=== PATIENT | male | born 1945 | race Caucasian/White ===

== ENCOUNTER 2016-07-30 13:37 | Inpatient (IN) | payer OTHER, MEDICARE ==
[~2016-07-30 13:37] MED LIST: ACETAMINOPHEN325 MG PO; ALLOPURINOL100 M1 PO; ALLOPURINOL100 MG PO; ALLOPURINOL300 MG; AMOXICILLIN500 MG PO; ASPIR-TRIN325 M2 PO; ASPIRIN EC81 MG PO; ASPIRIN325 MG; ASPIRIN81 M1 PO; ASPIRIN81 MG PO; ATORVASTATIN CA20 M1; ATORVASTATIN CA40 M1 PO; AVELOX400 MG; BAYER ASPIRIN325 M1 PO; CALCIUM 500 +1 EA10 PO; CALCIUM 500 WI1 EAC1 PO; CELEXA40 M2 PO; CELEXA40 MG PO; CHLORHEXIDINE118 ML TP; CLARITIN10 M2 PO; CLARITIN10 M6 PO; COMBIVENT RESPIM4 G1 INH; COUMADIN2.5 M1 PO; COUMADIN5 M2 PO; COUMADIN5 MG PO; CRESTOR20 MG PO; DERMACERIN CRE454 GM TP; FERROUS SULFAT325 MG PO; FLUNISOLIDE25 M3; FLUNISOLIDE25 ML NS; FLUOXETINE HCL10 MG; FOLIC ACID0.4 MG; FOSAMAX70 M1 PO; FOSAMAX70 MG PO; GEMFIBROZIL600 MG PO; GLUCOPHAGE500 M3 PO; GUAIFENESIN400 M1 PO; GUAIFENESIN400 MG PO; GUAIFENESIN600 MG; HYDROCHLOROTHIA25 MG; INDOCIN50 MG; IPRAT-ALBUT 0.5-3 ML INH; IPRATR-ALBUTEROL3 ML IH; LAMISIL250 MG; LASIX80 M1 PO; LIPITOR40 M1 PO; LISINOPRIL40 M1 PO; LISINOPRIL40 MG PO; METOPROLOL SUCC25 M1 PO; METOPROLOL TART25 M1 PO; NAPROSYN375 MG PO; NAPROXEN500 MG PO; NIACIN750 MG; NORCO 5-325 TA1 EACH PO; POTASSIUM CHLO20 ME4 PO; PRINIVIL40 MG; PROBENECID500 MG; PROTONIX40 M2 PO; PROVENTIL17 GM IH; PULMICORT180 PUFF/I INH; TRAZODONE HCL300 MG; TRAZODONE HCL50 M1 PO; TRAZODONE50 MG PO; TYLENOL325 M2 PO; VENTOLIN HFA18 G2 PO; ZANTAC150 MG PO; ZOCOR40 MG; ZYLOPRIM100 M1 PO
[2016-07-30] MEDS ORDERED: COREG25 M1 PO (14:12)
[2016-07-30] MEDS ORDERED: SYMBICORT 160-1 PUFF INH (14:12)
[2016-07-30] MEDS ORDERED: CYCLOBENZAPRINE5 M1 PO (14:13)
[2016-07-30] MEDS ORDERED: DOXYCYCLINE MO100 M1 PO (14:14)
[2016-07-30] MEDS ORDERED: SPIRIVA18 MC1 INH (14:15)
[2016-07-30] MEDS ORDERED: PREDNISONE5 M1 PO (14:17)
[2016-07-30 14:20] LABS: ABG CO2 ARTERIAL 28 mmol/L (21-27); ARTERIAL BLD GAS O2 SATURATION 94 % (95-98); ARTERIAL BLOOD GAS PCO2 38 mmHg (32-45); ARTERIAL PO2 70 mmHg (70-100); BICARBONATE 27 mmol/L (21-28); BLOOD GAS BASE EXCESS 4 mM/L (-/+3); PH 7.46 Units (7.35-7.45)
[2016-07-30 14:29] LABS: BASO % 0.3 % (0-2); EOS % 1.1 % (0-7); EOSINOPHIL ABSOLUTE COUNT 0.1 tho/cmm (0.0-0.7); HCT-HEMATOCRIT 41.2 % (36.0-53.5); HGB-HEMOGLOBIN 12.9 gm/dl (13.5-17.0); IMMATURE GRANULOCYTES ABSOLUTE 0.01 tho/cmm (0-0.03); IMMATURE GRANULOCYTES PERCENT 0.1 % (0-0.3); LYMPH % 13.2 % (20-45); LYMPH ABSOLUTE COUNT 1.5 tho/cmm (0.8-4.5); MCH (MEAN CORPUSCULAR HGB) 27.3 pg (28.0-32.0); MCHC MEAN CORPUSCULAR HGB CONC 31.3 % (32.0-36.0); MCV (MEAN CELL VOLUME) 87.3 fl (82.0-96.0); MEAN PLATELET VOLUME 9.3 cmc (9.4-12.4); MONO % 8.1 % (0-12); MONOCYTE ABSOLUTE COUNT 0.9 tho/cmm (0.0-1.2); NEUTROPHIL ABSOLUTE COUNT 8.8 tho/cmm (1.6-8.0); NEUTROPHIL-AUTOMATED 8.8 tho/cmm (1.6-8.0); NEUTROPHILS % 77.2 % (40-80); PLATELET COUNT 308 tho/cmm (150-450); RED BLOOD COUNT 4.72 mil/cmm (4.40-5.70); RED CELL DISTRIBUTION WIDTH 18.8 % (12.4-16.4); WHITE BLOOD COUNT 11.5 tho/cmm (4.0-10.0)
[2016-07-30 14:47] LABS: ALB/GLOB RATIO 0.8 (0.8-2.0); ALBUMIN 3.1 g/dl (3.5-5.0); ALKALINE PHOSPHATASE 99 U/L (33-138); ALT/SGPT 36 U/L (12-78); ANION GAP 13 mmol/L (0-20); AST/SGOT 34 U/L (10-40); BILIRUBIN,TOTAL 0.6 mg/dl (0.0-1.5); BLOOD UREA NITROGEN 23 mg/dl (6-24); CARBON DIOXIDE-VENOUS 27 mmol/L (22-32); CHLORIDE 101 mmol/l (96-110); CREATININE 1.27 mg/dl (0.60-1.30); GLUCOSE 135 mg/dL (70-110); POTASSIUM 4.1 mmol/L (3.7-5.1); SODIUM 137 mmol/L (135-145); eGFR VALUE FOR BLACK 66 mL/Min
[2016-07-30 15:06] LABS: PROCALCITONIN 0.25 ng/ml (0.05-0.09)
[2016-07-30 15:50] LABS: URINE BILIRUBIN NEGATIVE (NEG); URINE BLOOD NEGATIVE (NEG); URINE GLUCOSE (UA) NEGATIVE (NEG); URINE KETONE NEGATIVE (NEG); URINE LEUKOCYTE ESTERASE NEGATIVE (NEG); URINE NITRITE NEGATIVE (NEG); URINE PROTEIN MODERATE (NEG); URINE SPECIFIC GRAVITY 1.005 (1.003-1.030)
[2016-07-30 15:56] LABS: URINE APPEARANCE CLEAR; URINE COLOR PALE YELLOW
[2016-07-30 16:06] LABS: URINE EPITHELIAL CELLS 0-1 /[HPF] (0-10); URINE RBC 0-1 /[HPF] (0-5)
[2016-07-30 17:27] LABS: MAGNESIUM 1.9 mg/dl (1.3-2.6); TSH-THYROID STIMULATING HORM. 0.82 uIU/ml (0.40-3.80)
[2016-07-30 21:05] LABS: CREATINE PHOSPHOKINASE (CPK) 63 U/L (35-232)
[2016-07-31 05:14] LABS: EOS % 0.2 % (0-7); HCT-HEMATOCRIT 43.2 % (36.0-53.5); HGB-HEMOGLOBIN 13.4 gm/dl (13.5-17.0); IMMATURE GRANULOCYTES ABSOLUTE 0.02 tho/cmm (0-0.03); IMMATURE GRANULOCYTES PERCENT 0.3 % (0-0.3); LYMPH % 14.1 % (20-45); LYMPH ABSOLUTE COUNT 0.8 tho/cmm (0.8-4.5); MCH (MEAN CORPUSCULAR HGB) 27.1 pg (28.0-32.0); MCV (MEAN CELL VOLUME) 87.3 fl (82.0-96.0); MEAN PLATELET VOLUME 9.8 cmc (9.4-12.4); MONO % 2.2 % (0-12); MONOCYTE ABSOLUTE COUNT 0.1 tho/cmm (0.0-1.2); NEUTROPHIL ABSOLUTE COUNT 4.8 tho/cmm (1.6-8.0); NEUTROPHIL-AUTOMATED 4.8 tho/cmm (1.6-8.0); NEUTROPHILS % 83.2 % (40-80); PLATELET COUNT 369 tho/cmm (150-450); RED BLOOD COUNT 4.95 mil/cmm (4.40-5.70); RED CELL DISTRIBUTION WIDTH 18.9 % (12.4-16.4); WHITE BLOOD COUNT 5.8 tho/cmm (4.0-10.0)
[2016-07-31 05:29] LABS: CKMB 4.1 ng/ml (<3.6)
[2016-07-31 05:29] LABS: ALB/GLOB RATIO 0.8 (0.8-2.0); ALBUMIN 3.1 g/dl (3.5-5.0); ALKALINE PHOSPHATASE 109 U/L (33-138); BILIRUBIN,TOTAL 0.8 mg/dl (0.0-1.5); BLOOD UREA NITROGEN 32 mg/dl (6-24); CARBON DIOXIDE-VENOUS 25 mmol/L (22-32); CHLORIDE 101 mmol/l (96-110); GLUCOSE 173 mg/dL (70-110); SODIUM 136 mmol/L (135-145)
[2016-07-31 05:55] LABS: CREATINE PHOSPHOKINASE (CPK) 96 U/L (35-232)
[2016-07-31 05:55] LABS: ALT/SGPT 99 U/L (12-78); ANION GAP 15 mmol/L (0-20); AST/SGOT 96 U/L (10-40); CREATININE 2.07 mg/dl (0.60-1.30); eGFR VALUE FOR BLACK 37 mL/Min
[2016-07-31 09:24] LABS: ABG CO2 ARTERIAL 23 mmol/L (21-27); ARTERIAL BLD GAS O2 SATURATION 93 % (95-98); ARTERIAL BLOOD GAS PCO2 42 mmHg (32-45); ARTERIAL PO2 79 mmHg (70-100); BICARBONATE 22 mmol/L (21-28); BLOOD GAS BASE EXCESS -3 mM/L (-/+3); PH 7.34 Units (7.35-7.45)
[2016-07-31 09:27] LABS: CKMB 4.3 ng/ml (<3.6)
[2016-07-31 09:28] LABS: CREATINE PHOSPHOKINASE (CPK) 111 U/L (35-232)
[2016-07-31 16:25] LABS: BASO % 0.1 % (0-2); HCT-HEMATOCRIT 40.4 % (36.0-53.5); HGB-HEMOGLOBIN 12.7 gm/dl (13.5-17.0); IMMATURE GRANULOCYTES ABSOLUTE 0.02 tho/cmm (0-0.03); IMMATURE GRANULOCYTES PERCENT 0.3 % (0-0.3); LYMPH % 5.6 % (20-45); LYMPH ABSOLUTE COUNT 0.4 tho/cmm (0.8-4.5); MCH (MEAN CORPUSCULAR HGB) 27.4 pg (28.0-32.0); MCHC MEAN CORPUSCULAR HGB CONC 31.4 % (32.0-36.0); MCV (MEAN CELL VOLUME) 87.1 fl (82.0-96.0); MEAN PLATELET VOLUME 9.5 cmc (9.4-12.4); MONO % 9.1 % (0-12); MONOCYTE ABSOLUTE COUNT 0.7 tho/cmm (0.0-1.2); NEUTROPHILS % 84.9 % (40-80); PLATELET COUNT 313 tho/cmm (150-450); RED BLOOD COUNT 4.64 mil/cmm (4.40-5.70); RED CELL DISTRIBUTION WIDTH 18.8 % (12.4-16.4); WHITE BLOOD COUNT 7.1 tho/cmm (4.0-10.0)
[2016-07-31 16:30] LABS: ABG CO2 ARTERIAL 25 mmol/L (21-27); ARTERIAL BLD GAS O2 SATURATION 98 % (95-98); ARTERIAL BLOOD GAS PCO2 47 mmHg (32-45); ARTERIAL PO2 118 mmHg (70-100); BICARBONATE 24 mmol/L (21-28); BLOOD GAS BASE EXCESS -2 mM/L (-/+3); PH 7.33 Units (7.35-7.45)
[2016-07-31 16:39] LABS: ANION GAP 15 mmol/L (0-20); BLOOD UREA NITROGEN 44 mg/dl (6-24); CALCIUM 8.8 mg/dl (8.5-10.5); CARBON DIOXIDE-VENOUS 26 mmol/L (22-32); CHLORIDE 101 mmol/l (96-110); CREATININE 2.05 mg/dl (0.60-1.30); GLUCOSE 152 mg/dL (70-110); SODIUM 137 mmol/L (135-145); eGFR VALUE FOR BLACK 37 mL/Min
[2016-07-31 18:34] LABS: ABG CO2 ARTERIAL 25 mmol/L (21-27); ARTERIAL BLD GAS O2 SATURATION 98 % (95-98); ARTERIAL BLOOD GAS PCO2 44 mmHg (32-45); ARTERIAL PO2 123 mmHg (70-100); BICARBONATE 24 mmol/L (21-28); BLOOD GAS BASE EXCESS -1 mM/L (-/+3); PH 7.36 Units (7.35-7.45)
[2016-08-01 04:08] LABS: ABG CO2 ARTERIAL 24 mmol/L (21-27); ARTERIAL BLD GAS O2 SATURATION 99 % (95-98); ARTERIAL BLOOD GAS PCO2 39 mmHg (32-45); BICARBONATE 23 mmol/L (21-28); BLOOD GAS BASE EXCESS -2 mM/L (-/+3); PH 7.38 Units (7.35-7.45)
[2016-08-01 04:09] LABS: ARTERIAL PO2 240 mmHg (70-100)
[2016-08-01 04:31] LABS: HCT-HEMATOCRIT 39.2 % (36.0-53.5); HGB-HEMOGLOBIN 12.2 gm/dl (13.5-17.0); IMMATURE GRANULOCYTES ABSOLUTE 0.03 tho/cmm (0-0.03); IMMATURE GRANULOCYTES PERCENT 0.5 % (0-0.3); LYMPH % 8.2 % (20-45); LYMPH ABSOLUTE COUNT 0.5 tho/cmm (0.8-4.5); MCH (MEAN CORPUSCULAR HGB) 26.9 pg (28.0-32.0); MCHC MEAN CORPUSCULAR HGB CONC 31.1 % (32.0-36.0); MCV (MEAN CELL VOLUME) 86.3 fl (82.0-96.0); MEAN PLATELET VOLUME 9.9 cmc (9.4-12.4); MONO % 4.8 % (0-12); MONOCYTE ABSOLUTE COUNT 0.3 tho/cmm (0.0-1.2); NEUTROPHIL ABSOLUTE COUNT 5.4 tho/cmm (1.6-8.0); NEUTROPHIL-AUTOMATED 5.4 tho/cmm (1.6-8.0); NEUTROPHILS % 86.5 % (40-80); PLATELET COUNT 247 tho/cmm (150-450); RED BLOOD COUNT 4.54 mil/cmm (4.40-5.70); RED CELL DISTRIBUTION WIDTH 18.7 % (12.4-16.4); WHITE BLOOD COUNT 6.3 tho/cmm (4.0-10.0)
[2016-08-01 04:52] LABS: ALB/GLOB RATIO 0.9 (0.8-2.0); ALBUMIN 2.9 g/dl (3.5-5.0); ALKALINE PHOSPHATASE 92 U/L (33-138); ANION GAP 14 mmol/L (0-20); BILIRUBIN,DIRECT 0.3 mg/dl (0.0-0.3); BILIRUBIN,INDIRECT 0.5 mg/dL (0.0-1.0); BILIRUBIN,TOTAL 0.8 mg/dl (0.0-1.5); BLOOD UREA NITROGEN 48 mg/dl (6-24); CALCIUM 8.1 mg/dl (8.5-10.5); CARBON DIOXIDE-VENOUS 25 mmol/L (22-32); CHLORIDE 102 mmol/l (96-110); CREATININE 1.97 mg/dl (0.60-1.30); GLUCOSE 136 mg/dL (70-110); MAGNESIUM 2.1 mg/dl (1.3-2.6); POTASSIUM 4.4 mmol/L (3.7-5.1); SODIUM 137 mmol/L (135-145); eGFR VALUE FOR BLACK 39 mL/Min
[2016-08-01 05:07] LABS: ALT/SGPT 1367 U/L (12-78); AST/SGOT 1341 U/L (10-40)
[2016-08-01 15:15] LABS: INR 1.8 INR (0.9-1.1); PROTHROMBIN TIME 20.7 SECONDS (9.0-13.6)
[2016-08-01 15:27] LABS: IRON 15 ug/dl (49-181); IRON BINDING CAPACITY 313 ug/dl (250-450)
[2016-08-01 15:29] LABS: FERRITIN 73 ng/ml (22-388)
[2016-08-02 05:24] LABS: HCT-HEMATOCRIT 38.1 % (36.0-53.5); HGB-HEMOGLOBIN 11.9 gm/dl (13.5-17.0); IMMATURE GRANULOCYTES ABSOLUTE 0.03 tho/cmm (0-0.03); IMMATURE GRANULOCYTES PERCENT 0.3 % (0-0.3); LYMPH % 1.5 % (20-45); LYMPH ABSOLUTE COUNT 0.2 tho/cmm (0.8-4.5); MCH (MEAN CORPUSCULAR HGB) 26.8 pg (28.0-32.0); MCHC MEAN CORPUSCULAR HGB CONC 31.2 % (32.0-36.0); MCV (MEAN CELL VOLUME) 85.8 fl (82.0-96.0); MEAN PLATELET VOLUME 10.3 cmc (9.4-12.4); MONO % 10.9 % (0-12); MONOCYTE ABSOLUTE COUNT 1.2 tho/cmm (0.0-1.2); NEUTROPHIL ABSOLUTE COUNT 9.2 tho/cmm (1.6-8.0); NEUTROPHIL-AUTOMATED 9.2 tho/cmm (1.6-8.0); NEUTROPHILS % 87.3 % (40-80); PLATELET COUNT 258 tho/cmm (150-450); RED BLOOD COUNT 4.44 mil/cmm (4.40-5.70); RED CELL DISTRIBUTION WIDTH 18.8 % (12.4-16.4)
[2016-08-02 05:34] LABS: WHITE BLOOD COUNT 10.5 tho/cmm (4.0-10.0)
[2016-08-02 05:39] LABS: ALBUMIN 2.9 g/dl (3.5-5.0); ANION GAP 20 mmol/L (0-20); BLOOD UREA NITROGEN 66 mg/dl (6-24); CALCIUM 7.9 mg/dl (8.5-10.5); CARBON DIOXIDE-VENOUS 22 mmol/L (22-32); CHLORIDE 99 mmol/l (96-110); GLUCOSE 133 mg/dL (70-110); POTASSIUM 3.9 mmol/L (3.7-5.1); SODIUM 137 mmol/L (135-145)
[2016-08-02 05:46] LABS: ALKALINE PHOSPHATASE 95 U/L (33-138); CREATININE 2.37 mg/dl (0.60-1.30); eGFR VALUE FOR BLACK 31 mL/Min
[2016-08-02 05:47] LABS: ALT/SGPT 2490 U/L (12-78); AST/SGOT 1988 U/L (10-40); BILIRUBIN,DIRECT 0.7 mg/dl (0.0-0.3); BILIRUBIN,INDIRECT 0.7 mg/dL (0.0-1.0); BILIRUBIN,TOTAL 1.4 mg/dl (0.0-1.5)
[2016-08-02 05:59] LABS: ALB/GLOB RATIO 0.9 (0.8-2.0); BUN/CREATININE RATIO 27.8 RATIO (6-25)
[2016-08-02 08:54] LABS: ABG CO2 ARTERIAL 20 mmol/L (21-27); ARTERIAL BLD GAS O2 SATURATION 97 % (95-98); ARTERIAL BLOOD GAS PCO2 28 mmHg (32-45); ARTERIAL PO2 97 mmHg (70-100); BICARBONATE 20 mmol/L (21-28); BLOOD GAS BASE EXCESS -3 mM/L (-/+3); PH 7.46 Units (7.35-7.45)
[2016-08-02 09:44] LABS: URINE CREATININE-RANDOM 85 mg/dl (30-125); URINE SODIUM-RANDOM 6 mmol/L (20-110)
[2016-08-02 12:03] LABS: URINE TOTAL PROTEIN-RANDOM 71.5 mg/dl (<11.8)
--- NOTE | 2016-08-02 19:09 | NUR ---
08/02/16 @ 1909: REVIEWED AND AGREED WITH MARITO HORN RN CHARTING FOR THIS PATIENT. ANNE MANNING RN
[2016-08-03 04:23] LABS: HCT-HEMATOCRIT 34.9 % (36.0-53.5); HGB-HEMOGLOBIN 11.1 gm/dl (13.5-17.0); IMMATURE GRANULOCYTES ABSOLUTE 0.02 tho/cmm (0-0.03); IMMATURE GRANULOCYTES PERCENT 0.3 % (0-0.3); LYMPH % 3.9 % (20-45); LYMPH ABSOLUTE COUNT 0.3 tho/cmm (0.8-4.5); MCH (MEAN CORPUSCULAR HGB) 26.5 pg (28.0-32.0); MCHC MEAN CORPUSCULAR HGB CONC 31.8 % (32.0-36.0); MCV (MEAN CELL VOLUME) 83.3 fl (82.0-96.0); MEAN PLATELET VOLUME 10.1 cmc (9.4-12.4); MONO % 10.7 % (0-12); MONOCYTE ABSOLUTE COUNT 0.8 tho/cmm (0.0-1.2); NEUTROPHIL ABSOLUTE COUNT 6.1 tho/cmm (1.6-8.0); NEUTROPHIL-AUTOMATED 6.1 tho/cmm (1.6-8.0); NEUTROPHILS % 85.1 % (40-80); PLATELET COUNT 175 tho/cmm (150-450); RED BLOOD COUNT 4.19 mil/cmm (4.40-5.70); RED CELL DISTRIBUTION WIDTH 18.5 % (12.4-16.4); WHITE BLOOD COUNT 7.2 tho/cmm (4.0-10.0)
[2016-08-03 04:39] LABS: ALB/GLOB RATIO 1.1 (0.8-2.0); ALBUMIN 2.9 g/dl (3.5-5.0); ALKALINE PHOSPHATASE 101 U/L (33-138); ANION GAP 18 mmol/L (0-20); BILIRUBIN,TOTAL 1.7 mg/dl (0.0-1.5); BLOOD UREA NITROGEN 81 mg/dl (6-24); CARBON DIOXIDE-VENOUS 22 mmol/L (22-32); CHLORIDE 97 mmol/l (96-110); CREATININE 2.65 mg/dl (0.60-1.30); GLUCOSE 140 mg/dL (70-110); MAGNESIUM 2.3 mg/dl (1.3-2.6); PHOSPHOROUS 5.5 mg/dl (2.5-4.9); POTASSIUM 3.5 mmol/L (3.7-5.1); SODIUM 133 mmol/L (135-145); eGFR VALUE FOR BLACK 27 mL/Min
[2016-08-03 05:39] LABS: ALT/SGPT 3454 U/L (12-78); AST/SGOT 3055 U/L (10-40)
[2016-08-03 10:28] LABS: INR 2.7 INR (0.9-1.1); PROTHROMBIN TIME 32.9 SECONDS (9.0-13.6)
[2016-08-04 04:31] LABS: HCT-HEMATOCRIT 34.3 % (36.0-53.5); HGB-HEMOGLOBIN 11.2 gm/dl (13.5-17.0); IMMATURE GRANULOCYTES ABSOLUTE 0.02 tho/cmm (0-0.03); IMMATURE GRANULOCYTES PERCENT 0.3 % (0-0.3); LYMPH % 5.7 % (20-45); LYMPH ABSOLUTE COUNT 0.4 tho/cmm (0.8-4.5); MCH (MEAN CORPUSCULAR HGB) 26.9 pg (28.0-32.0); MCHC MEAN CORPUSCULAR HGB CONC 32.7 % (32.0-36.0); MCV (MEAN CELL VOLUME) 82.5 fl (82.0-96.0); MEAN PLATELET VOLUME 10.9 cmc (9.4-12.4); MONO % 7.4 % (0-12); MONOCYTE ABSOLUTE COUNT 0.5 tho/cmm (0.0-1.2); NEUTROPHIL ABSOLUTE COUNT 6.1 tho/cmm (1.6-8.0); NEUTROPHIL-AUTOMATED 6.1 tho/cmm (1.6-8.0); NEUTROPHILS % 86.6 % (40-80); PLATELET COUNT 130 tho/cmm (150-450); RED BLOOD COUNT 4.16 mil/cmm (4.40-5.70); RED CELL DISTRIBUTION WIDTH 18.2 % (12.4-16.4); WHITE BLOOD COUNT 7.1 tho/cmm (4.0-10.0)
[2016-08-04 04:36] LABS: INR 2.5 INR (0.9-1.1)
[2016-08-04 04:51] LABS: ALB/GLOB RATIO 1.1 (0.8-2.0); ALBUMIN 2.8 g/dl (3.5-5.0); ALKALINE PHOSPHATASE 111 U/L (33-138); ANION GAP 18 mmol/L (0-20); BILIRUBIN,DIRECT 0.8 mg/dl (0.0-0.3); BILIRUBIN,INDIRECT 0.7 mg/dL (0.0-1.0); BILIRUBIN,TOTAL 1.5 mg/dl (0.0-1.5); BLOOD UREA NITROGEN 87 mg/dl (6-24); CALCIUM 6.6 mg/dl (8.5-10.5); CARBON DIOXIDE-VENOUS 25 mmol/L (22-32); CHLORIDE 94 mmol/l (96-110); CREATININE 2.62 mg/dl (0.60-1.30); GLUCOSE 140 mg/dL (70-110); PHOSPHOROUS 4.9 mg/dl (2.5-4.9); POTASSIUM 3.6 mmol/L (3.7-5.1); SODIUM 133 mmol/L (135-145); eGFR VALUE FOR BLACK 27 mL/Min
[2016-08-04 05:07] LABS: ALT/SGPT 3179 U/L (12-78); AST/SGOT 1817 U/L (10-40)
[2016-08-04 06:26] LABS: URINE PRT/CR RATIO 0.96 Ratio (0.0-0.20); URINE TOTAL PROTEIN-RANDOM 19.3 mg/dl (<11.8)
[2016-08-05 05:25] LABS: HCT-HEMATOCRIT 35.3 % (36.0-53.5); HGB-HEMOGLOBIN 11.8 gm/dl (13.5-17.0); MCH (MEAN CORPUSCULAR HGB) 27.2 pg (28.0-32.0); MCHC MEAN CORPUSCULAR HGB CONC 33.4 % (32.0-36.0); MCV (MEAN CELL VOLUME) 81.3 fl (82.0-96.0); MEAN PLATELET VOLUME 10.1 cmc (9.4-12.4); NEUTROPHIL-AUTOMATED 6.8 tho/cmm (1.6-8.0); PLATELET COUNT 101 tho/cmm (150-450); RED BLOOD COUNT 4.34 mil/cmm (4.40-5.70); RED CELL DISTRIBUTION WIDTH 18.2 % (12.4-16.4); WHITE BLOOD COUNT 7.7 tho/cmm (4.0-10.0)
[2016-08-05 05:28] LABS: IMMATURE GRANULOCYTES ABSOLUTE 0.04 tho/cmm (0-0.03); IMMATURE GRANULOCYTES PERCENT 0.5 % (0-0.3); LYMPH % 4.4 % (20-45); LYMPH ABSOLUTE COUNT 0.3 tho/cmm (0.8-4.5); MONO % 7.1 % (0-12); MONOCYTE ABSOLUTE COUNT 0.6 tho/cmm (0.0-1.2); NEUTROPHIL ABSOLUTE COUNT 6.8 tho/cmm (1.6-8.0)
[2016-08-05 05:53] LABS: ANION GAP 17 mmol/L (0-20); BLOOD UREA NITROGEN 83 mg/dl (6-24); CALCIUM 7.1 mg/dl (8.5-10.5); CARBON DIOXIDE-VENOUS 24 mmol/L (22-32); CHLORIDE 92 mmol/l (96-110); CREATININE 2.31 mg/dl (0.60-1.30); GLUCOSE 155 mg/dL (70-110); MAGNESIUM 2.5 mg/dl (1.3-2.6); PHOSPHOROUS 4.5 mg/dl (2.5-4.9); POTASSIUM 3.8 mmol/L (3.7-5.1); SODIUM 129 mmol/L (135-145); eGFR VALUE FOR BLACK 32 mL/Min
[2016-08-05 15:04] LABS: PF4 (HIT) ANTIBODY POSITIVE (NEGATIVE)
[2016-08-05 15:50] LABS: ALBUMIN 2.9 g/dl (3.5-5.0); BILIRUBIN,DIRECT 0.9 mg/dl (0.0-0.3); BILIRUBIN,INDIRECT 0.7 mg/dL (0.0-1.0); BILIRUBIN,TOTAL 1.6 mg/dl (0.0-1.5)
[2016-08-05 16:05] LABS: INR 1.8 INR (0.9-1.1); PROTHROMBIN TIME 21.3 SECONDS (9.0-13.6)
[2016-08-05 17:40] LABS: FIBRINOGEN 176 mg/dl (200-400)
[2016-08-05 17:42] LABS: ANTI THROMBIN III 52 % (80-120)
[2016-08-05 17:43] LABS: PARTIAL THROMBOPLASTIN TIME 39 SECONDS (22-38)
[2016-08-06 04:02] LABS: HCT-HEMATOCRIT 36.1 % (36.0-53.5); HGB-HEMOGLOBIN 11.7 gm/dl (13.5-17.0); MCH (MEAN CORPUSCULAR HGB) 26.3 pg (28.0-32.0); MCHC MEAN CORPUSCULAR HGB CONC 32.4 % (32.0-36.0); MCV (MEAN CELL VOLUME) 81.1 fl (82.0-96.0); MEAN PLATELET VOLUME 10.6 cmc (9.4-12.4); NEUTROPHIL-AUTOMATED 6.5 tho/cmm (1.6-8.0); PLATELET COUNT 101 tho/cmm (150-450); RED BLOOD COUNT 4.45 mil/cmm (4.40-5.70); WHITE BLOOD COUNT 7.3 tho/cmm (4.0-10.0)
[2016-08-06 04:10] LABS: INR 1.6 INR (0.9-1.1); PROTHROMBIN TIME 19.1 SECONDS (9.0-13.6)
[2016-08-06 04:22] LABS: ALBUMIN 2.9 g/dl (3.5-5.0); ALKALINE PHOSPHATASE 204 U/L (33-138); ANION GAP 15 mmol/L (0-20); AST/SGOT 424 U/L (10-40); BILIRUBIN,TOTAL 1.5 mg/dl (0.0-1.5); BLOOD UREA NITROGEN 78 mg/dl (6-24); CALCIUM 7.7 mg/dl (8.5-10.5); CARBON DIOXIDE-VENOUS 28 mmol/L (22-32); CHLORIDE 91 mmol/l (96-110); CREATININE 1.95 mg/dl (0.60-1.30); GLUCOSE 178 mg/dL (70-110); MAGNESIUM 2.5 mg/dl (1.3-2.6); PHOSPHOROUS 3.8 mg/dl (2.5-4.9); POTASSIUM 3.8 mmol/L (3.7-5.1); SODIUM 130 mmol/L (135-145); eGFR VALUE FOR BLACK 39 mL/Min
[2016-08-06 04:39] LABS: ALT/SGPT 2015 U/L (12-78)
[2016-08-06 04:45] LABS: BASO % 0.1 % (0-2); IMMATURE GRANULOCYTES ABSOLUTE 0.02 tho/cmm (0-0.03); IMMATURE GRANULOCYTES PERCENT 0.3 % (0-0.3); LYMPH % 3.7 % (20-45); LYMPH ABSOLUTE COUNT 0.3 tho/cmm (0.8-4.5); MONO % 6.2 % (0-12); MONOCYTE ABSOLUTE COUNT 0.5 tho/cmm (0.0-1.2); NEUTROPHIL ABSOLUTE COUNT 6.5 tho/cmm (1.6-8.0); NEUTROPHILS % 89.7 % (40-80)
[2016-08-07 04:33] LABS: HCT-HEMATOCRIT 36.8 % (36.0-53.5); HGB-HEMOGLOBIN 11.9 gm/dl (13.5-17.0); IMMATURE GRANULOCYTES ABSOLUTE 0.02 tho/cmm (0-0.03); IMMATURE GRANULOCYTES PERCENT 0.2 % (0-0.3); LYMPH % 3.3 % (20-45); LYMPH ABSOLUTE COUNT 0.3 tho/cmm (0.8-4.5); MCH (MEAN CORPUSCULAR HGB) 26.3 pg (28.0-32.0); MCHC MEAN CORPUSCULAR HGB CONC 32.3 % (32.0-36.0); MCV (MEAN CELL VOLUME) 81.4 fl (82.0-96.0); MEAN PLATELET VOLUME 9.9 cmc (9.4-12.4); MONO % 5.7 % (0-12); MONOCYTE ABSOLUTE COUNT 0.5 tho/cmm (0.0-1.2); NEUTROPHIL ABSOLUTE COUNT 7.3 tho/cmm (1.6-8.0); NEUTROPHIL-AUTOMATED 7.3 tho/cmm (1.6-8.0); NEUTROPHILS % 90.8 % (40-80); PLATELET COUNT 83 tho/cmm (150-450); RED BLOOD COUNT 4.52 mil/cmm (4.40-5.70); RED CELL DISTRIBUTION WIDTH 18.3 % (12.4-16.4); WHITE BLOOD COUNT 8.1 tho/cmm (4.0-10.0)
[2016-08-07 04:46] LABS: INR 1.4 INR (0.9-1.1); PROTHROMBIN TIME 16.7 SECONDS (9.0-13.6)
[2016-08-07 04:56] LABS: ALBUMIN 2.9 g/dl (3.5-5.0); ALKALINE PHOSPHATASE 189 U/L (33-138); BILIRUBIN,TOTAL 1.5 mg/dl (0.0-1.5); BLOOD UREA NITROGEN 67 mg/dl (6-24); CALCIUM 8.5 mg/dl (8.5-10.5); CARBON DIOXIDE-VENOUS 31 mmol/L (22-32); CHLORIDE 91 mmol/l (96-110); CREATININE 1.64 mg/dl (0.60-1.30); GLUCOSE 231 mg/dL (70-110); SODIUM 131 mmol/L (135-145); eGFR VALUE FOR BLACK 48 mL/Min
[2016-08-07 05:14] LABS: ALT/SGPT 1453 U/L (12-78); ANION GAP 13 mmol/L (0-20); AST/SGOT 212 U/L (10-40); POTASSIUM 3.8 mmol/L (3.7-5.1)
[2016-08-08 04:21] LABS: HCT-HEMATOCRIT 37.6 % (36.0-53.5); HGB-HEMOGLOBIN 11.9 gm/dl (13.5-17.0); MCH (MEAN CORPUSCULAR HGB) 26.2 pg (28.0-32.0); MCHC MEAN CORPUSCULAR HGB CONC 31.6 % (32.0-36.0); MCV (MEAN CELL VOLUME) 82.8 fl (82.0-96.0); MEAN PLATELET VOLUME 10.1 cmc (9.4-12.4); NEUTROPHIL-AUTOMATED (STOP CHECK) tho/cmm (1.6-8.0); PLATELET COUNT 86 tho/cmm (150-450); RED BLOOD COUNT 4.54 mil/cmm (4.40-5.70); RED CELL DISTRIBUTION WIDTH 18.8 % (12.4-16.4)
[2016-08-08 04:37] LABS: ALKALINE PHOSPHATASE 185 U/L (33-138); ANION GAP 13 mmol/L (0-20); AST/SGOT 123 U/L (10-40); BILIRUBIN,TOTAL 1.4 mg/dl (0.0-1.5); BLOOD UREA NITROGEN 64 mg/dl (6-24); CALCIUM 8.5 mg/dl (8.5-10.5); CARBON DIOXIDE-VENOUS 32 mmol/L (22-32); CHLORIDE 93 mmol/l (96-110); GLUCOSE 250 mg/dL (70-110); PHOSPHOROUS 2.9 mg/dl (2.5-4.9); POTASSIUM 4.3 mmol/L (3.7-5.1); SODIUM 134 mmol/L (135-145); eGFR VALUE FOR BLACK 54 mL/Min
[2016-08-08 04:53] LABS: ALT/SGPT 1086 U/L (12-78)
[2016-08-08 05:14] LABS: INR 1.2 INR (0.9-1.1); PROTHROMBIN TIME 14.4 SECONDS (9.0-13.6)
[2016-08-08 10:25] LABS: BAND % 1 % (0-20); BAND ABSOLUTE COUNT 0.1 tho/cmm (0-2.0)
[2016-08-09 05:26] LABS: ANION GAP 11 mmol/L (0-20); BLOOD UREA NITROGEN 54 mg/dl (6-24); CALCIUM 8.5 mg/dl (8.5-10.5); CARBON DIOXIDE-VENOUS 34 mmol/L (22-32); CHLORIDE 95 mmol/l (96-110); CREATININE 1.34 mg/dl (0.60-1.30); GLUCOSE 187 mg/dL (70-110); SODIUM 136 mmol/L (135-145); eGFR VALUE FOR BLACK 62 mL/Min
[2016-08-09 05:43] LABS: HCT-HEMATOCRIT 34.5 % (36.0-53.5); MCH (MEAN CORPUSCULAR HGB) 26.6 pg (28.0-32.0); MCHC MEAN CORPUSCULAR HGB CONC 31.9 % (32.0-36.0); MCV (MEAN CELL VOLUME) 83.3 fl (82.0-96.0); MEAN PLATELET VOLUME 10.9 cmc (9.4-12.4); PLATELET COUNT 70 tho/cmm (150-450); RED BLOOD COUNT 4.14 mil/cmm (4.40-5.70); WHITE BLOOD COUNT 11.8 tho/cmm (4.0-10.0)
[2016-08-09 05:49] LABS: INR 1.3 INR (0.9-1.1); PROTHROMBIN TIME 14.9 SECONDS (9.0-13.6)
[2016-08-09 07:31] LABS: BAND % 2 % (0-20); BAND ABSOLUTE COUNT 0.2 tho/cmm (0-2.0)
[2016-08-09 11:09] LABS: ABG CO2 ARTERIAL 34 mmol/L (21-27); ARTERIAL BLD GAS O2 SATURATION 93 % (95-98); ARTERIAL BLOOD GAS PCO2 45 mmHg (32-45); ARTERIAL PO2 64 mmHg (70-100); BICARBONATE 33 mmol/L (21-28); BLOOD GAS BASE EXCESS 9 mM/L (-/+3); PH 7.48 Units (7.35-7.45)
[2016-08-10 02:52] LABS: MAGNESIUM 2.6 mg/dl (1.8-2.6)
[2016-08-10 03:28] LABS: HCT-HEMATOCRIT 34.4 % (36.0-53.5); HGB-HEMOGLOBIN 10.8 gm/dl (13.5-17.0); IMMATURE GRANULOCYTES ABSOLUTE 0.04 tho/cmm (0-0.03); IMMATURE GRANULOCYTES PERCENT 0.4 % (0-0.3); LYMPH % 3.3 % (20-45); LYMPH ABSOLUTE COUNT 0.4 tho/cmm (0.8-4.5); MCH (MEAN CORPUSCULAR HGB) 26.5 pg (28.0-32.0); MCHC MEAN CORPUSCULAR HGB CONC 31.4 % (32.0-36.0); MCV (MEAN CELL VOLUME) 84.3 fl (82.0-96.0); MEAN PLATELET VOLUME 10.5 cmc (9.4-12.4); MONO % 0.7 % (0-12); MONOCYTE ABSOLUTE COUNT 0.1 tho/cmm (0.0-1.2); NEUTROPHIL ABSOLUTE COUNT 10.2 tho/cmm (1.6-8.0); NEUTROPHIL-AUTOMATED 10.2 tho/cmm (1.6-8.0); NEUTROPHILS % 95.6 % (40-80); PLATELET COUNT 71 tho/cmm (150-450); RED BLOOD COUNT 4.08 mil/cmm (4.40-5.70); WHITE BLOOD COUNT 10.7 tho/cmm (4.0-10.0)
[2016-08-10 03:41] LABS: ALB/GLOB RATIO 1.1 (0.8-2.0); ALBUMIN 2.8 g/dl (3.5-5.0); ALKALINE PHOSPHATASE 125 U/L (33-138); ANION GAP 9 mmol/L (0-20); BILIRUBIN,TOTAL 1.7 mg/dl (0.0-1.5); BLOOD UREA NITROGEN 53 mg/dl (6-24); CALCIUM 8.4 mg/dl (8.5-10.5); CARBON DIOXIDE-VENOUS 35 mmol/L (22-32); CHLORIDE 96 mmol/l (96-110); CREATININE 1.21 mg/dl (0.60-1.30); GLUCOSE 234 mg/dL (70-110); INR 1.3 INR (0.9-1.1); PROTHROMBIN TIME 15.3 SECONDS (9.0-13.6); SODIUM 136 mmol/L (135-145); eGFR VALUE FOR BLACK 70 mL/Min
[2016-08-10 04:16] LABS: ALT/SGPT 526 U/L (12-78); AST/SGOT 57 U/L (10-40)
[2016-08-10 04:34] LABS: ABG CO2 ARTERIAL 36 mmol/L (21-27); ARTERIAL BLD GAS O2 SATURATION 95 % (95-98); ARTERIAL BLOOD GAS PCO2 44 mmHg (32-45); ARTERIAL PO2 70 mmHg (70-100); BICARBONATE 35 mmol/L (21-28); BLOOD GAS BASE EXCESS 10 mM/L (-/+3); PH 7.51 Units (7.35-7.45)
[2016-08-11 04:15] LABS: HCT-HEMATOCRIT 32.1 % (36.0-53.5); HGB-HEMOGLOBIN 9.9 gm/dl (13.5-17.0); IMMATURE GRANULOCYTES ABSOLUTE 0.07 tho/cmm (0-0.03); IMMATURE GRANULOCYTES PERCENT 0.6 % (0-0.3); LYMPH % 3.2 % (20-45); LYMPH ABSOLUTE COUNT 0.4 tho/cmm (0.8-4.5); MCH (MEAN CORPUSCULAR HGB) 26.3 pg (28.0-32.0); MCHC MEAN CORPUSCULAR HGB CONC 30.8 % (32.0-36.0); MCV (MEAN CELL VOLUME) 85.1 fl (82.0-96.0); MONO % 1.2 % (0-12); MONOCYTE ABSOLUTE COUNT 0.1 tho/cmm (0.0-1.2); NEUTROPHIL ABSOLUTE COUNT 11.1 tho/cmm (1.6-8.0); NEUTROPHIL-AUTOMATED 11.1 tho/cmm (1.6-8.0); PLATELET COUNT 68 tho/cmm (150-450); RED BLOOD COUNT 3.77 mil/cmm (4.40-5.70); RED CELL DISTRIBUTION WIDTH 19.3 % (12.4-16.4); WHITE BLOOD COUNT 11.6 tho/cmm (4.0-10.0)
[2016-08-11 04:20] LABS: ANION GAP 10 mmol/L (0-20); BLOOD UREA NITROGEN 47 mg/dl (6-24); CALCIUM 8.2 mg/dl (8.5-10.5); CARBON DIOXIDE-VENOUS 35 mmol/L (22-32); CHLORIDE 94 mmol/l (96-110); GLUCOSE 183 mg/dL (70-110); MAGNESIUM 2.6 mg/dl (1.8-2.6); POTASSIUM 3.8 mmol/L (3.7-5.1); SODIUM 135 mmol/L (135-145); eGFR VALUE FOR BLACK 71 mL/Min
[2016-08-11 16:03] LABS: URINE LEUKOCYTE ESTERASE NEGATIVE (NEG); URINE PROTEIN MODERATE (NEG)
[2016-08-11 16:04] LABS: URINE APPEARANCE CLEAR; URINE BILIRUBIN NEGATIVE (NEG); URINE BLOOD MODERATE (NEG); URINE COLOR YELLOW; URINE GLUCOSE (UA) SMALL (NEG); URINE KETONE NEGATIVE (NEG); URINE NITRITE NEGATIVE (NEG)
[2016-08-11 16:19] LABS: URINE EPITHELIAL CELLS 0-2 /[HPF] (0-10); URINE RBC 0-2 /[HPF] (0-5); URINE WBC 0-1 /[HPF] (0-5)
[2016-08-12 03:43] LABS: BASO % 0.1 % (0-2); HCT-HEMATOCRIT 30.6 % (36.0-53.5); HGB-HEMOGLOBIN 9.4 gm/dl (13.5-17.0); IMMATURE GRANULOCYTES ABSOLUTE 0.04 tho/cmm (0-0.03); IMMATURE GRANULOCYTES PERCENT 0.3 % (0-0.3); LYMPH % 5.6 % (20-45); LYMPH ABSOLUTE COUNT 0.8 tho/cmm (0.8-4.5); MCH (MEAN CORPUSCULAR HGB) 26.2 pg (28.0-32.0); MCHC MEAN CORPUSCULAR HGB CONC 30.7 % (32.0-36.0); MCV (MEAN CELL VOLUME) 85.2 fl (82.0-96.0); MONO % 1.7 % (0-12); MONOCYTE ABSOLUTE COUNT 0.3 tho/cmm (0.0-1.2); NEUTROPHIL ABSOLUTE COUNT 13.8 tho/cmm (1.6-8.0); NEUTROPHIL-AUTOMATED 13.8 tho/cmm (1.6-8.0); NEUTROPHILS % 92.3 % (40-80); PLATELET COUNT 73 tho/cmm (150-450); RED BLOOD COUNT 3.59 mil/cmm (4.40-5.70); RED CELL DISTRIBUTION WIDTH 19.6 % (12.4-16.4)
[2016-08-12 04:09] LABS: ALB/GLOB RATIO 1.1 (0.8-2.0); ALBUMIN 2.6 g/dl (3.5-5.0); ALKALINE PHOSPHATASE 95 U/L (33-138); ALT/SGPT 273 U/L (12-78); ANION GAP 10 mmol/L (0-20); AST/SGOT 60 U/L (10-40); BILIRUBIN,TOTAL 1.5 mg/dl (0.0-1.5); BLOOD UREA NITROGEN 46 mg/dl (6-24); CALCIUM 8.1 mg/dl (8.5-10.5); CARBON DIOXIDE-VENOUS 37 mmol/L (22-32); CHLORIDE 93 mmol/l (96-110); CHOLESTEROL 139 mg/dl (120-200); CREATININE 1.24 mg/dl (0.60-1.30); GLUCOSE 122 mg/dL (70-110); HDL CHOLESTEROL 60 mg/dl (40-60); LDL CHOLESTEROL 61 mg/dl (0-99); MAGNESIUM 2.6 mg/dl (1.8-2.6); POTASSIUM 3.9 mmol/L (3.7-5.1); SODIUM 136 mmol/L (135-145); TRIGLYCERIDES 91 mg/dl (<149); VLDL 18 mg/dl (0-30); eGFR VALUE FOR BLACK 68 mL/Min
[2016-08-13 04:38] LABS: BASO % 0.1 % (0-2); HCT-HEMATOCRIT 27.5 % (36.0-53.5); HGB-HEMOGLOBIN 8.6 gm/dl (13.5-17.0); IMMATURE GRANULOCYTES ABSOLUTE 0.05 tho/cmm (0-0.03); IMMATURE GRANULOCYTES PERCENT 0.3 % (0-0.3); LYMPH % 2.5 % (20-45); LYMPH ABSOLUTE COUNT 0.4 tho/cmm (0.8-4.5); MCH (MEAN CORPUSCULAR HGB) 26.9 pg (28.0-32.0); MCHC MEAN CORPUSCULAR HGB CONC 31.3 % (32.0-36.0); MCV (MEAN CELL VOLUME) 85.9 fl (82.0-96.0); MEAN PLATELET VOLUME 10.5 cmc (9.4-12.4); MONO % 0.8 % (0-12); MONOCYTE ABSOLUTE COUNT 0.1 tho/cmm (0.0-1.2); NEUTROPHIL ABSOLUTE COUNT 13.9 tho/cmm (1.6-8.0); NEUTROPHIL-AUTOMATED 13.9 tho/cmm (1.6-8.0); NEUTROPHILS % 96.3 % (40-80); PLATELET COUNT 56 tho/cmm (150-450); RED CELL DISTRIBUTION WIDTH 19.9 % (12.4-16.4); WHITE BLOOD COUNT 14.4 tho/cmm (4.0-10.0)
[2016-08-13 04:50] LABS: ALBUMIN 2.3 g/dl (3.5-5.0); ALKALINE PHOSPHATASE 82 U/L (33-138); ALT/SGPT 186 U/L (12-78); ANION GAP 9 mmol/L (0-20); AST/SGOT 36 U/L (10-40); BILIRUBIN,TOTAL 1.7 mg/dl (0.0-1.5); BLOOD UREA NITROGEN 48 mg/dl (6-24); CALCIUM 7.6 mg/dl (8.5-10.5); CARBON DIOXIDE-VENOUS 37 mmol/L (22-32); CHLORIDE 94 mmol/l (96-110); GLUCOSE 150 mg/dL (70-110); MAGNESIUM 2.6 mg/dl (1.8-2.6); POTASSIUM 3.7 mmol/L (3.7-5.1); SODIUM 136 mmol/L (135-145); eGFR VALUE FOR BLACK 64 mL/Min
[2016-08-14 04:14] LABS: HCT-HEMATOCRIT 25.7 % (36.0-53.5); HGB-HEMOGLOBIN 7.8 gm/dl (13.5-17.0); IMMATURE GRANULOCYTES ABSOLUTE 0.03 tho/cmm (0-0.03); IMMATURE GRANULOCYTES PERCENT 0.3 % (0-0.3); LYMPH % 1.9 % (20-45); LYMPH ABSOLUTE COUNT 0.2 tho/cmm (0.8-4.5); MCH (MEAN CORPUSCULAR HGB) 26.4 pg (28.0-32.0); MCHC MEAN CORPUSCULAR HGB CONC 30.4 % (32.0-36.0); MCV (MEAN CELL VOLUME) 86.8 fl (82.0-96.0); MEAN PLATELET VOLUME 10.2 cmc (9.4-12.4); MONO % 1.6 % (0-12); MONOCYTE ABSOLUTE COUNT 0.2 tho/cmm (0.0-1.2); NEUTROPHIL ABSOLUTE COUNT 11.2 tho/cmm (1.6-8.0); NEUTROPHIL-AUTOMATED 11.2 tho/cmm (1.6-8.0); NEUTROPHILS % 96.2 % (40-80); RED BLOOD COUNT 2.96 mil/cmm (4.40-5.70); RED CELL DISTRIBUTION WIDTH 20.1 % (12.4-16.4); WHITE BLOOD COUNT 11.7 tho/cmm (4.0-10.0)
[2016-08-14 04:18] LABS: PLATELET COUNT 42 tho/cmm (150-450)
[2016-08-14 04:19] LABS: ALB/GLOB RATIO 0.9 (0.8-2.0); ALBUMIN 2.2 g/dl (3.5-5.0); ALKALINE PHOSPHATASE 69 U/L (33-138); ALT/SGPT 141 U/L (12-78); ANION GAP 9 mmol/L (0-20); AST/SGOT 29 U/L (10-40); BILIRUBIN,DIRECT 0.7 mg/dl (0.0-0.3); BILIRUBIN,INDIRECT 0.9 mg/dL (0.0-1.0); BILIRUBIN,TOTAL 1.6 mg/dl (0.0-1.5); BLOOD UREA NITROGEN 48 mg/dl (6-24); CALCIUM 7.4 mg/dl (8.5-10.5); CARBON DIOXIDE-VENOUS 37 mmol/L (22-32); CHLORIDE 95 mmol/l (96-110); CREATININE 1.23 mg/dl (0.60-1.30); GLUCOSE 131 mg/dL (70-110); MAGNESIUM 2.7 mg/dl (1.8-2.6); POTASSIUM 3.3 mmol/L (3.7-5.1); SODIUM 138 mmol/L (135-145); eGFR VALUE FOR BLACK 69 mL/Min
[2016-08-14 17:09] LABS: BASO % 0.1 % (0-2); HGB-HEMOGLOBIN 8.3 gm/dl (13.5-17.0); IMMATURE GRANULOCYTES ABSOLUTE 0.04 tho/cmm (0-0.03); IMMATURE GRANULOCYTES PERCENT 0.3 % (0-0.3); LYMPH % 2.2 % (20-45); LYMPH ABSOLUTE COUNT 0.3 tho/cmm (0.8-4.5); MCH (MEAN CORPUSCULAR HGB) 26.9 pg (28.0-32.0); MCHC MEAN CORPUSCULAR HGB CONC 30.7 % (32.0-36.0); MCV (MEAN CELL VOLUME) 87.7 fl (82.0-96.0); MONO % 0.8 % (0-12); MONOCYTE ABSOLUTE COUNT 0.1 tho/cmm (0.0-1.2); NEUTROPHIL ABSOLUTE COUNT 11.6 tho/cmm (1.6-8.0); NEUTROPHIL-AUTOMATED 11.6 tho/cmm (1.6-8.0); NEUTROPHILS % 96.6 % (40-80); RED BLOOD COUNT 3.08 mil/cmm (4.40-5.70)
[2016-08-14 17:11] LABS: PLATELET COUNT 44 tho/cmm (150-450)
[2016-08-15 03:36] LABS: HCT-HEMATOCRIT 27.8 % (36.0-53.5); HGB-HEMOGLOBIN 8.6 gm/dl (13.5-17.0); IMMATURE GRANULOCYTES ABSOLUTE 0.06 tho/cmm (0-0.03); IMMATURE GRANULOCYTES PERCENT 0.4 % (0-0.3); LYMPH % 2.7 % (20-45); LYMPH ABSOLUTE COUNT 0.4 tho/cmm (0.8-4.5); MCH (MEAN CORPUSCULAR HGB) 27.3 pg (28.0-32.0); MCHC MEAN CORPUSCULAR HGB CONC 30.9 % (32.0-36.0); MCV (MEAN CELL VOLUME) 88.3 fl (82.0-96.0); MEAN PLATELET VOLUME 10.8 cmc (9.4-12.4); MONO % 0.6 % (0-12); MONOCYTE ABSOLUTE COUNT 0.1 tho/cmm (0.0-1.2); NEUTROPHIL ABSOLUTE COUNT 13.9 tho/cmm (1.6-8.0); NEUTROPHIL-AUTOMATED 13.9 tho/cmm (1.6-8.0); NEUTROPHILS % 96.3 % (40-80); RED BLOOD COUNT 3.15 mil/cmm (4.40-5.70); RED CELL DISTRIBUTION WIDTH 20.1 % (12.4-16.4); WHITE BLOOD COUNT 14.4 tho/cmm (4.0-10.0)
[2016-08-15 03:47] LABS: PLATELET COUNT 49 tho/cmm (150-450)
[2016-08-15 04:01] LABS: ALBUMIN 2.4 g/dl (3.5-5.0); ALKALINE PHOSPHATASE 72 U/L (33-138); ALT/SGPT 129 U/L (12-78); ANION GAP 7 mmol/L (0-20); AST/SGOT 28 U/L (10-40); BILIRUBIN,TOTAL 1.7 mg/dl (0.0-1.5); BLOOD UREA NITROGEN 44 mg/dl (6-24); CALCIUM 7.4 mg/dl (8.5-10.5); CARBON DIOXIDE-VENOUS 37 mmol/L (22-32); CHLORIDE 98 mmol/l (96-110); CREATININE 1.16 mg/dl (0.60-1.30); GLUCOSE 116 mg/dL (70-110); MAGNESIUM 2.7 mg/dl (1.8-2.6); POTASSIUM 3.3 mmol/L (3.7-5.1); SODIUM 139 mmol/L (135-145); eGFR VALUE FOR BLACK 74 mL/Min
[2016-08-15 12:04] LABS: INR 1.1 INR (0.9-1.1); PROTHROMBIN TIME 12.6 SECONDS (9.0-13.6)
[2016-08-16 05:42] LABS: HCT-HEMATOCRIT 25.6 % (36.0-53.5); HGB-HEMOGLOBIN 7.9 gm/dl (13.5-17.0); IMMATURE GRANULOCYTES ABSOLUTE 0.03 tho/cmm (0-0.03); IMMATURE GRANULOCYTES PERCENT 0.3 % (0-0.3); LYMPH % 1.5 % (20-45); LYMPH ABSOLUTE COUNT 0.1 tho/cmm (0.8-4.5); MCH (MEAN CORPUSCULAR HGB) 27.3 pg (28.0-32.0); MCHC MEAN CORPUSCULAR HGB CONC 30.9 % (32.0-36.0); MCV (MEAN CELL VOLUME) 88.6 fl (82.0-96.0); MEAN PLATELET VOLUME 11.8 cmc (9.4-12.4); MONO % 1.6 % (0-12); MONOCYTE ABSOLUTE COUNT 0.2 tho/cmm (0.0-1.2); NEUTROPHIL ABSOLUTE COUNT 8.8 tho/cmm (1.6-8.0); NEUTROPHIL-AUTOMATED 8.8 tho/cmm (1.6-8.0); NEUTROPHILS % 96.6 % (40-80); RED BLOOD COUNT 2.89 mil/cmm (4.40-5.70); RED CELL DISTRIBUTION WIDTH 20.5 % (12.4-16.4); WHITE BLOOD COUNT 9.1 tho/cmm (4.0-10.0)
[2016-08-16 05:53] LABS: PLATELET COUNT 44 tho/cmm (150-450)
[2016-08-16 05:57] LABS: ALBUMIN 2.3 g/dl (3.5-5.0); ALKALINE PHOSPHATASE 72 U/L (33-138); ALT/SGPT 102 U/L (12-78); ANION GAP 8 mmol/L (0-20); AST/SGOT 21 U/L (10-40); BILIRUBIN,TOTAL 1.6 mg/dl (0.0-1.5); BLOOD UREA NITROGEN 44 mg/dl (6-24); CALCIUM 7.6 mg/dl (8.5-10.5); CARBON DIOXIDE-VENOUS 36 mmol/L (22-32); CHLORIDE 101 mmol/l (96-110); CREATININE 1.26 mg/dl (0.60-1.30); POTASSIUM 3.4 mmol/L (3.7-5.1); SODIUM 142 mmol/L (135-145); eGFR VALUE FOR BLACK 67 mL/Min
[2016-08-16 06:16] LABS: GLUCOSE 186 mg/dL (70-110)
[2016-08-17 03:49] LABS: HCT-HEMATOCRIT 26.6 % (36.0-53.5); IMMATURE GRANULOCYTES ABSOLUTE 0.03 tho/cmm (0-0.03); IMMATURE GRANULOCYTES PERCENT 0.2 % (0-0.3); LYMPH % 2.1 % (20-45); LYMPH ABSOLUTE COUNT 0.3 tho/cmm (0.8-4.5); MCHC MEAN CORPUSCULAR HGB CONC 30.1 % (32.0-36.0); MCV (MEAN CELL VOLUME) 89.9 fl (82.0-96.0); MEAN PLATELET VOLUME 11.2 cmc (9.4-12.4); MONO % 0.5 % (0-12); MONOCYTE ABSOLUTE COUNT 0.1 tho/cmm (0.0-1.2); NEUTROPHILS % 97.2 % (40-80); RED BLOOD COUNT 2.96 mil/cmm (4.40-5.70); RED CELL DISTRIBUTION WIDTH 20.7 % (12.4-16.4); WHITE BLOOD COUNT 13.4 tho/cmm (4.0-10.0)
[2016-08-17 04:08] LABS: ANION GAP 9 mmol/L (0-20); BLOOD UREA NITROGEN 40 mg/dl (6-24); CALCIUM 7.6 mg/dl (8.5-10.5); CARBON DIOXIDE-VENOUS 36 mmol/L (22-32); CHLORIDE 108 mmol/l (96-110); CREATININE 1.18 mg/dl (0.60-1.30); GLUCOSE 125 mg/dL (70-110); MAGNESIUM 2.6 mg/dl (1.8-2.6); PLATELET COUNT 40 tho/cmm (150-450); POTASSIUM 3.9 mmol/L (3.7-5.1); SODIUM 149 mmol/L (135-145); eGFR VALUE FOR BLACK 72 mL/Min
[2016-08-18 03:32] LABS: ALB/GLOB RATIO 0.8 (0.8-2.0); ALBUMIN 2.3 g/dl (3.5-5.0); ALKALINE PHOSPHATASE 80 U/L (33-138); ALT/SGPT 83 U/L (12-78); ANION GAP 8 mmol/L (0-20); AST/SGOT 25 U/L (10-40); BILIRUBIN,TOTAL 1.7 mg/dl (0.0-1.5); BLOOD UREA NITROGEN 43 mg/dl (6-24); CALCIUM 7.9 mg/dl (8.5-10.5); CARBON DIOXIDE-VENOUS 36 mmol/L (22-32); CHLORIDE 104 mmol/l (96-110); GLUCOSE 119 mg/dL (70-110); MAGNESIUM 2.5 mg/dl (1.8-2.6); SODIUM 144 mmol/L (135-145); eGFR VALUE FOR BLACK 71 mL/Min
[2016-08-18 03:44] LABS: HCT-HEMATOCRIT 30.1 % (36.0-53.5); IMMATURE GRANULOCYTES ABSOLUTE 0.07 tho/cmm (0-0.03); IMMATURE GRANULOCYTES PERCENT 0.3 % (0-0.3); LYMPH ABSOLUTE COUNT 0.5 tho/cmm (0.8-4.5); MCH (MEAN CORPUSCULAR HGB) 27.3 pg (28.0-32.0); MCHC MEAN CORPUSCULAR HGB CONC 29.9 % (32.0-36.0); MCV (MEAN CELL VOLUME) 91.2 fl (82.0-96.0); MONO % 1.2 % (0-12); MONOCYTE ABSOLUTE COUNT 0.3 tho/cmm (0.0-1.2); NEUTROPHIL ABSOLUTE COUNT 22.3 tho/cmm (1.6-8.0); NEUTROPHIL-AUTOMATED 22.3 tho/cmm (1.6-8.0); NEUTROPHILS % 96.5 % (40-80); RED CELL DISTRIBUTION WIDTH 21.6 % (12.4-16.4)
[2016-08-18 04:03] LABS: WHITE BLOOD COUNT 23.1 tho/cmm (4.0-10.0)
[2016-08-18 04:04] LABS: PLATELET COUNT 42 tho/cmm (150-450)
[2016-08-18 08:31] LABS: ABG CO2 ARTERIAL 36 mmol/L (21-27); ARTERIAL BLD GAS O2 SATURATION 98 % (95-98); ARTERIAL BLOOD GAS PCO2 46 mmHg (32-45); ARTERIAL PO2 92 mmHg (70-100); BICARBONATE 35 mmol/L (21-28); BLOOD GAS BASE EXCESS 11 mM/L (-/+3); PH 7.49 Units (7.35-7.45)
[2016-08-18] MEDS ORDERED: SENOKOT-S TABL1 EACH PO (14:11)
[2016-08-18] MEDS ORDERED: PREDNISONE10 M1 PO (14:15)
--- NOTE | 2016-08-18 14:16 | NUR ---
Family choose [facility], they were called, info faxed and they did receive it. Hospital visit made by hospice. [facility] arranged ambulance transfer for 4pm. Pt and family seem at peace with dc plan, family is sad but happy they are honoring pts wish to go home today to . Support given.
[2016-08-18] MEDS ORDERED: ROXICODONE5 M2 PO/SL (14:21)
[2016-08-18] MEDS ORDERED: ATIVAN0.5 M1 PO/SL (14:21)
[2016-08-18] MEDS ORDERED: MORPHINE S20 MG/1 M1 PO (14:33)
[2016-08-18] MEDS ORDERED: SENNA CONCENTR8.6 M1 PO (14:34)
== END 2016-08-18 17:08 | disposition hospice, home (50) | DRG 166 ==
LOC: EDMED 13:37 → EMR2 16:42 → PCUA 19:50 → CCU 08-02 10:10 → PCUA 08-07 07:30
PROVIDERS: Emergency Medicine; Family Medicine; Internal Medicine; Internal Medicine Cardiovascular Disease; Internal Medicine Critical Care Medicine; Internal Medicine Gastroenterology; Internal Medicine Medical Oncology; Internal Medicine Nephrology; Internal Medicine Pulmonary Disease; Nurse Practitioner Adult Health; Nurse Practitioner Family; ADMIT Hospitalist
PROC: 5A09557 Assistance with Respiratory Ventilation, Greater than 96 Consecutive Hours, Continuous Positive Airway Pressure (ICD-10-PCS; 2016-07-31)
PROC: 02HV33Z Insertion of Infusion Device into Superior Vena Cava, Percutaneous Approach (ICD-10-PCS; principal; 2016-08-01)
PROC: B548ZZA Ultrasonography of Superior Vena Cava, Guidance (ICD-10-PCS; 2016-08-01)
PROC: 0B9H8ZX Drainage of Lung Lingula, Via Natural or Artificial Opening Endoscopic, Diagnostic (ICD-10-PCS; 2016-08-12)
PROC: 0BC18ZZ Extirpation of Matter from Trachea, Via Natural or Artificial Opening Endoscopic (ICD-10-PCS; 2016-08-12)
DX: J44.1 Chronic obstructive pulmonary disease with (acute) exacerbation (principal); J18.9 Pneumonia, unspecified organism; J96.21 Acute and chronic respiratory failure with hypoxia; K72.00 Acute and subacute hepatic failure without coma; R65.20 Severe sepsis without septic shock; R57.0 Cardiogenic shock; G93.40 Encephalopathy, unspecified; A41.9 Sepsis, unspecified organism; D68.9 Coagulation defect, unspecified; I50.21 Acute systolic (congestive) heart failure; J96.22 Acute and chronic respiratory failure with hypercapnia; B37.0 Candidal stomatitis; I42.9 Cardiomyopathy, unspecified; D62 Acute posthemorrhagic anemia; E87.1 Hypo-osmolality and hyponatremia; I47.2 Ventricular tachycardia; N17.9 Acute kidney failure, unspecified; I48.0 Paroxysmal atrial fibrillation; E11.65 Type 2 diabetes mellitus with hyperglycemia; E87.6 Hypokalemia; M10.9 Gout, unspecified; Z79.01 Long term (current) use of anticoagulants; D69.6 Thrombocytopenia, unspecified; E78.5 Hyperlipidemia, unspecified; I10 Essential (primary) hypertension; I73.9 Peripheral vascular disease, unspecified; J44.9 Chronic obstructive pulmonary disease, unspecified; K80.20 Calculus of gallbladder without cholecystitis without obstruction; Z51.5 Encounter for palliative care; F17.210 Nicotine dependence, cigarettes, uncomplicated; Z92.3 Personal history of irradiation; F32.9 Major depressive disorder, single episode, unspecified; I25.5 Ischemic cardiomyopathy
CPT/HCPCS: C1751; G0500; G8996-GN-CK; G8996-GN-CM; G8997-GN-CJ; G8997-GN-CN; G8998-GN-CM; J0282; J1160; J1250; J1650; J1652; J1815; J1940; J1956; J2060; J2250; J2310; J2543; J2920; J2930; J3010; J3370; J3480; J7030; J7040; J7050; J7512; J7999; P9045